=== PATIENT | male | born 1980 | race Caucasian/White ===

== ENCOUNTER 2016-05-25 15:00 | Emergency (ER) | payer OTHER ==
[~2016-05-25 15:00] MED LIST: K-TAB ER20 MEQ PO; LEVAQUIN750 MG PO; NORVASC5 MG PO; PERCOCET 5-3251 EACH PO; ZESTRIL/PRINIVI10 MG PO
[2016-05-25 17:36] LABS: HEMOGLOBIN 12.6 gm/dl (14.0-17.5); RED BLOOD COUNT 4.97 M/UL (4.20-5.50); WHITE BLOOD COUNT 7.4 K/UL (4.5-11.0)
[2016-05-25 17:55] LABS: BUN/CREATININE RATIO 28 (0-10)
== END 2016-05-25 21:37 | disposition home or self-care (01) ==
LOC: ER1 15:00
PROVIDERS: Nurse Practitioner Family
DX: R10.33 Periumbilical pain (principal); I10 Essential (primary) hypertension; Z90.49 Acquired absence of other specified parts of digestive tract; Z79.899 Other long term (current) drug therapy
CPT/HCPCS: 36415; 80053; 81001; 82150; 83605; 83690; 85025; 87040; 87086; 96361; 96374; 96375; 99284; J1885; J2270; J2405; J7050; Q9962

== ENCOUNTER 2016-06-16 09:00 | Observation (INO) | payer OTHER ==
[2016-06-16 09:48] LABS: HEMOGLOBIN 13.4 gm/dl (14.0-17.5); RED BLOOD COUNT 5.17 M/UL (4.20-5.50); WHITE BLOOD COUNT 7.7 K/UL (4.5-11.0)
[2016-06-16 17:34] LABS: BUN/CREATININE RATIO 28 (0-10)
[2016-06-17 06:13] LABS: HEMOGLOBIN 11.6 gm/dl (14.0-17.5); WHITE BLOOD COUNT 6.7 K/UL (4.5-11.0)
[2016-06-17 06:20] LABS: RED BLOOD COUNT 4.47 M/UL (4.20-5.50)
[2016-06-17 06:28] LABS: BUN/CREATININE RATIO 28 (0-10)
[2016-06-17] MEDS ORDERED: TYLENOL 325MG325 MG PO (18:29)
[2016-06-17] MEDS ORDERED: METOPROLOL SUCC25 MG PO (18:30)
[2016-06-17] MEDS ORDERED: NORCO 5-325 TA1 EACH PO (18:32)
== END 2016-06-17 19:10 | disposition home or self-care (01) ==
LOC: ER1 09:00 → ZEROF 12:00 → M/S 12:00
PROVIDERS: Emergency Medicine; ADMIT Internal Medicine
DX: N17.9 Acute kidney failure, unspecified (principal); R11.2 Nausea with vomiting, unspecified; E86.0 Dehydration; D64.9 Anemia, unspecified; R74.0 Nonspecific elevation of levels of transaminase and lactic acid dehydrogenase [LDH]; B17.9 Acute viral hepatitis, unspecified; R80.9 Proteinuria, unspecified; I10 Essential (primary) hypertension; Z79.899 Other long term (current) drug therapy; Z90.49 Acquired absence of other specified parts of digestive tract
CPT/HCPCS: 36415; 80048; 80053; 81001; 82150; 82550; 83690; 83735; 83874; 85025; 85610; 86140; 87086; 93005; 96372; 96374; 96375; 96376; 99284; G0378; J1650; J2270; J2405; J7030; J7050; Q9962

== ENCOUNTER 2020-05-15 09:44 | Emergency (ER) | payer OTHER ==
[~2020-05-15 09:44] MED LIST changes: +IBUPROFEN800 MG PO; +MEDROL4 MG PO; +METOPROLOL SUCC25 MG PO; +NORCO 5-325 TA1 EACH PO; +NORVASC10 MG PO; +PERCOCET 5/325 T1 EA PO; +PHENERGAN 25 MG25 M1 PO; +PRINIVIL20 MG PO; +ROBAXIN500 MG PO; +TYLENOL 325MG325 MG PO
[2020-05-15 13:54] LABS: HEMOGLOBIN 14.5 gm/dl (14.0-17.5); WHITE BLOOD COUNT 7.3 K/UL (4.5-11.0)
[2020-05-15 14:13] LABS: BUN/CREATININE RATIO 43 (0-10)
[2020-05-15] MEDS ORDERED: ZOFRAN4 MG PO (15:15)
== END 2020-05-15 15:40 | disposition home or self-care (01) ==
LOC: ER1 09:44
PROVIDERS: Physician Assistant
DX: U07.1 COVID-19 (principal); I10 Essential (primary) hypertension; Z90.49 Acquired absence of other specified parts of digestive tract
CPT/HCPCS: 0240U; 80053; 85025; 96374; 99284; J2405; J7030

== ENCOUNTER 2020-08-26 13:15 | Emergency (ER) | payer OTHER ==
[~2020-08-26 13:15] MED LIST changes: +ZOFRAN4 MG PO
[2020-08-26] MEDS ORDERED: HYDROCODON-ACE1 EAC4 PO (15:49)
== END 2020-08-26 16:30 | disposition home or self-care (01) ==
LOC: ER1 13:15
DX: S42.401A Unspecified fracture of lower end of right humerus, initial encounter for closed fracture (principal); S46.911A Strain of unspecified muscle, fascia and tendon at shoulder and upper arm level, right arm, initial encounter; I10 Essential (primary) hypertension; Z79.899 Other long term (current) drug therapy; Z90.89 Acquired absence of other organs; W20.8XXA Other cause of strike by thrown, projected or falling object, initial encounter; Y92.009 Unspecified place in unspecified non-institutional (private) residence as the place of occurrence of the external cause
CPT/HCPCS: 29105; 73030; 73080; 73090; 99283

== ENCOUNTER → 2020-09-04 | Outpatient (CLI) | payer OTHER ==
[~2020-09-04] MED LIST changes: +HYDROCODON-ACE1 EAC4 PO
== END ==
LOC: KOH-I 08:57
DX: M25.421 Effusion, right elbow (principal); S42.401A Unspecified fracture of lower end of right humerus, initial encounter for closed fracture; M19.021 Primary osteoarthritis, right elbow; M25.721 Osteophyte, right elbow
CPT/HCPCS: 73200

== ENCOUNTER 2021-12-01 11:05 | Emergency (ER) | payer OTHER ==
[2021-12-01 12:17] LABS: HEMOGLOBIN 9.8 gm/dl (14.0-17.5); RED BLOOD COUNT 3.79 M/UL (4.20-5.50); WHITE BLOOD COUNT 6.3 K/UL (4.5-11.0)
[2021-12-01 12:44] LABS: BUN/CREATININE RATIO 27 (0-10)
[2021-12-01] MEDS ORDERED: MEDROL DOSEPAK 24 MG PO (13:48)
[2021-12-01] MEDS ORDERED: CYCLOBENZAPRINE10 MG PO (13:48)
== END 2021-12-01 14:17 | disposition home or self-care (01) ==
LOC: ER1 11:05
PROVIDERS: Physician Assistant
DX: M54.12 Radiculopathy, cervical region (principal); Z90.89 Acquired absence of other organs; Z90.49 Acquired absence of other specified parts of digestive tract
CPT/HCPCS: 73030; 80053; 85025; 85652; 86140; 96374; 96375; 99284; J1100; J1885